=== PATIENT | female | born 1950 | race Caucasian/White ===

== ENCOUNTER → 2020-01-27 | Outpatient (CLI) | payer OTHER | LOC: MRI 13:33 | PROVIDERS: ATTEND Anesthesiology | DX: M54.16 Radiculopathy, lumbar region (principal); M46.1 Sacroiliitis, not elsewhere classified | CPT/HCPCS: 72148 ==

== ENCOUNTER 2021-11-13 16:00 | Emergency (ER) | payer OTHER ==
[~2021-11-13] VITALS: Ht 165.1 cm; Wt 104.3 kg
== END 2021-11-13 19:27 | disposition home or self-care (01) ==
LOC: FSED 16:04
DX: R07.9 Chest pain, unspecified (principal); M06.9 Rheumatoid arthritis, unspecified; E03.9 Hypothyroidism, unspecified; J45.909 Unspecified asthma, uncomplicated; E78.5 Hyperlipidemia, unspecified
CPT/HCPCS: 71046; 80053; 80076; 81003; 82553; 84484; 85025; 93005; 99284